=== PATIENT | female | born 1940 | race Caucasian/White ===

== ENCOUNTER 2023-08-30 06:53 | Inpatient (IN) ==
[2023-08-30 09:33] LABS: INR 1.02 (0.83-1.13)
[2023-08-30 09:47] LABS: Albumin 4.5 g/dL (3.2-5.2); Albumin/Globulin Ratio 1.3 (1-3); C Reactive Protein 5.77 mg/L (<8.01); Calcium 10.1 mg/dL (8.6-10.3); Creatinine, Serum 0.65 mg/dL (0.51-0.95); Globulin 3.5 g/dL (2-4); Potassium 4.1 mmol/L (3.5-5.0); Total Bilirubin 0.4 mg/dL (0.2-1.0); eGFR CKD-EPI 88.4 (>60)
[2023-08-30 09:58] LABS: ABS Lymphocytes 1.1 10^3/uL (1.0-4.8); ABS Monocytes 0.5 10^3/uL (0.0-0.9); ABS Neutrophils 9.2 10^3/uL (1.5-7.6); Eosinophil % 0.2 %; Hematocrit 37.4 % (35-45); Hemoglobin 12.3 g/dL (11.5-14.3); Lymphocyte % 10.2 %; Mean Corpuscular Hemoglobin 26.1 pg (27-33); Mean Platelet Volume 7.9 fL (7.5-11.2); Platelet Count 331 10^3/uL (150-450); Red Blood Count 4.73 10^6/uL (3.63-4.92); Red Cell Distribution Width 19.6 % (12-17); White Blood Count 10.9 10^3/uL (3.8-11.8)
[2023-08-30] MEDS ORDERED: Remdesivir 100 mg Vial 200 MG in NS 0.9% 250 ml 210 ML IV ONE (12:00)
[2023-08-30] MEDS ORDERED: Morphine 2 MG/ML SYRINGE IV PRN (14:40)
[2023-08-30] MEDS: Heparin 5000 UNITS/ML 1 mL VIAL SUBCUT SCH ×2 (17:03→23:25)
[2023-08-31] MEDS ORDERED: Magnesium Hydroxide LIQ 30 ML UDC PO PRN (07:23)
[2023-08-31] MEDS ORDERED: Ondansetron ODT 4 mg TAB 4 MG TAB SL PRN (07:23)
[2023-08-31] MEDS: Remdesivir 100 mg Vial 100 MG in NS 0.9% 250 ml 230 ML IV SCH (08:35)
[2023-08-31 08:37] LABS: Albumin/Globulin Ratio 1.3 (1-3); Calcium 9.3 mg/dL (8.6-10.3); Creatinine, Serum 0.71 mg/dL (0.51-0.95); Globulin 3.2 g/dL (2-4); Potassium 3.7 mmol/L (3.5-5.0); Total Bilirubin 0.6 mg/dL (0.2-1.0); Total Protein 7.2 g/dL (6.4-8.9); eGFR CKD-EPI 85.4 (>60)
[2023-08-31 08:39] LABS: INR 1.11 (0.83-1.13)
[2023-08-31] MEDS ORDERED: Remdesivir 100 mg Vial 100 MG in NS 0.9% 250 ml 230 ML IV SCH (09:00)
[2023-08-31] MEDS ORDERED: Morphine 2 MG/ML SYRINGE ONE (11:30)
[2023-08-31] MEDS: Morphine 2 MG/ML SYRINGE IV PRN ×2 (11:33→16:04)
[2023-08-31] MEDS: Acetaminophen IV 1 GM/100ML 1,000 MG/100 ML BAG IV SCH (18:32)
[2023-08-31] MEDS ORDERED: Enoxaparin 40 MG/0.4 ML SYR SUBCUT ONE (19:38)
[2023-08-31] MEDS: Morphine 2 MG/ML SYRINGE IV SCH ×2 (21:50→23:03)
[2023-08-31] MEDS: Lactated Ringers 1000 ml BAG 1,000 ML IV SCH (21:52)
[2023-08-31] MEDS ORDERED: Lactated Ringers 1000 ml BAG 1,000 ML IV ONE (22:22)
[2023-08-31] MEDS: Senna TAB 8.6 mg TAB PO SCH (23:01)
[2023-09-01] MEDS: Acetaminophen IV 1 GM/100ML 1,000 MG/100 ML BAG IV SCH ×4 (00:10→18:36)
[2023-09-01] MEDS: Morphine 2 MG/ML SYRINGE IV SCH ×4 (03:17→18:09)
[2023-09-01 07:58] LABS: ABS Lymphocytes 0.7 10^3/uL (1.0-4.8); ABS Monocytes 0.5 10^3/uL (0.0-0.9); ABS Neutrophils 6.3 10^3/uL (1.5-7.6); ABS Nucleated RBC 0.01 10^3/ul; Eosinophil % 0.4 %; Hematocrit 34.7 % (35-45); Hemoglobin 11.4 g/dL (11.5-14.3); Lymphocyte % 9.4 %; Mean Corpuscular Hgb Conc 32.7 g/dL (31-36); Mean Corpuscular Volume 79.5 fL (80-97); Mean Platelet Volume 8.1 fL (7.5-11.2); Nucleated Red Blood Cells % 0.1 %/100WBC (0.0-0.8); Platelet Count 244 10^3/uL (150-450); Red Blood Count 4.37 10^6/uL (3.63-4.92); Red Cell Distribution Width 19.8 % (12-17); White Blood Count 7.6 10^3/uL (3.8-11.8)
[2023-09-01 08:13] LABS: Albumin 3.9 g/dL (3.2-5.2); Albumin/Globulin Ratio 1.3 (1-3); Calcium 9.2 mg/dL (8.6-10.3); Creatinine, Serum 0.6 mg/dL (0.51-0.95); Globulin 3.1 g/dL (2-4); Potassium 3.6 mmol/L (3.5-5.0); Total Bilirubin 0.6 mg/dL (0.2-1.0); eGFR CKD-EPI 90.1 (>60)
[2023-09-01 08:19] LABS: INR 1.25 (0.83-1.13)
[2023-09-01] MEDS: Remdesivir 100 mg Vial 100 MG in NS 0.9% 250 ml 230 ML IV SCH (08:35)
[2023-09-01] MEDS: Lactated Ringers 1000 ml BAG 1,000 ML IV SCH ×2 (08:51→19:18)
[2023-09-01] MEDS ORDERED: fentaNYL 100 mcg/2 ml 50 MCG/ML VIAL ONE ×2 (11:10→14:27)
[2023-09-01] MEDS ORDERED: Lidocaine 2% PF 5 ML VIAL ONE (11:10)
[2023-09-01] MEDS ORDERED: Propofol 10 MG/ML 20 ML BTL ONE (11:10)
[2023-09-01] MEDS ORDERED: Rocuronium 50 mg VIAL 10 mg/ml 5 ml VIAL (50 mg) ONE (11:11)
[2023-09-01] MEDS ORDERED: Clindamycin 900 MG/50 **NS BAG 900 MG/50 ML BAG ONE (12:03)
[2023-09-01] MEDS ORDERED: Tranexamic Acid 1 GM/100ML BAG 2,000 MG/200 ML BAG IV ONE (12:05)
[2023-09-01] MEDS ORDERED: Dexamethasone IV 4 MG/ML VIAL 1 ml VIAL ONE ×2 (12:10→14:14)
[2023-09-01] MEDS ORDERED: Lidocaine 1% MPF 5 ML VIAL ONE (12:21)
[2023-09-01] MEDS ORDERED: Ropivacaine 0.2% 2 MG/ML VIAL ONE ×2 (12:21)
[2023-09-01] MEDS ORDERED: ROPIVACAINE 5 MG/ML 30 ML BTL (0.5%) ONE (13:10)
[2023-09-01] MEDS ORDERED: Ondansetron 4 mg VIAL 2 MG/ML 2 ml VIAL ONE (14:14)
[2023-09-01] MEDS: Morphine 2 MG/ML SYRINGE IV PRN (18:34)
[2023-09-01] MEDS: Senna TAB 8.6 mg TAB PO SCH (22:42)
[2023-09-01] MEDS: Clindamycin 600 MG/D5W BAG 600 MG/50 ML BAG IV SCH (22:50)
[2023-09-02] MEDS: Acetaminophen IV 1 GM/100ML 1,000 MG/100 ML BAG IV SCH ×3 (00:57→21:33)
[2023-09-02 04:44] LABS: ABS Lymphocytes 0.5 10^3/uL (1.0-4.8); ABS Monocytes 0.4 10^3/uL (0.0-0.9); ABS Neutrophils 6.1 10^3/uL (1.5-7.6); ABS Nucleated RBC 0.01 10^3/ul; Hematocrit 31.2 % (35-45); Hemoglobin 10.4 g/dL (11.5-14.3); Lymphocyte % 7.4 %; Mean Corpuscular Hemoglobin 26.4 pg (27-33); Mean Corpuscular Hgb Conc 33.4 g/dL (31-36); Mean Corpuscular Volume 79.3 fL (80-97); Mean Platelet Volume 8.2 fL (7.5-11.2); Nucleated Red Blood Cells % 0.1 %/100WBC (0.0-0.8); Platelet Count 239 10^3/uL (150-450); Red Blood Count 3.94 10^6/uL (3.63-4.92); Red Cell Distribution Width 19.4 % (12-17)
[2023-09-02 04:47] LABS: INR 1.4 (0.83-1.13)
[2023-09-02 05:02] LABS: Albumin 3.4 g/dL (3.2-5.2); Albumin/Globulin Ratio 1.3 (1-3); Calcium 8.9 mg/dL (8.6-10.3); Creatinine, Serum 0.54 mg/dL (0.51-0.95); Globulin 2.7 g/dL (2-4); Magnesium 1.8 mg/dL (1.9-2.7); Potassium 3.9 mmol/L (3.5-5.0); Total Bilirubin 0.4 mg/dL (0.2-1.0); Total Protein 6.1 g/dL (6.4-8.9); eGFR CKD-EPI 92.4 (>60)
[2023-09-02] MEDS: Clindamycin 600 MG/D5W BAG 600 MG/50 ML BAG IV SCH ×2 (06:08→16:09)
[2023-09-02] MEDS: Lactated Ringers 1000 ml BAG 1,000 ML IV SCH (06:09)
[2023-09-02] MEDS ORDERED: Magnesium Sulfate 2 gm BAG 2 GM/50 ML BAG IVPB ONE (07:22)
[2023-09-02] MEDS: Remdesivir 100 mg Vial 100 MG in NS 0.9% 250 ml 230 ML IV SCH (10:05)
[2023-09-02] MEDS ORDERED: Lactated Ringers 1000 ml BAG 1,000 ML IV ONE (16:46)
[2023-09-02] MEDS: Morphine 4 MG/ML VIAL (1 ml) IV SCH (21:32)
[2023-09-02] MEDS: Enoxaparin 40 MG/0.4 ML SYR SUBCUT SCH (21:33)
[2023-09-02] MEDS: Senna TAB 8.6 mg TAB PO SCH (22:37)
[2023-09-03] MEDS: Morphine 4 MG/ML VIAL (1 ml) IV SCH ×7 (02:27→23:38)
[2023-09-03] MEDS: Acetaminophen IV 1 GM/100ML 1,000 MG/100 ML BAG IV SCH ×3 (06:20→23:24)
[2023-09-03 07:48] LABS: ABS Basophils 0.1 10^3/uL (0.0-0.1); ABS Eosinophils 0.1 10^3/uL (0.0-0.5); ABS Lymphocytes 1.2 10^3/uL (1.0-4.8); ABS Monocytes 0.5 10^3/uL (0.0-0.9); ABS Neutrophils 5.1 10^3/uL (1.5-7.6); Eosinophil % 0.9 %; Hematocrit 27.2 % (35-45); Lymphocyte % 16.9 %; Mean Corpuscular Hemoglobin 26.2 pg (27-33); Mean Corpuscular Volume 79.3 fL (80-97); Mean Platelet Volume 8.3 fL (7.5-11.2); Nucleated Red Blood Cells % 0.1 %/100WBC (0.0-0.8); Platelet Count 245 10^3/uL (150-450); Red Blood Count 3.43 10^6/uL (3.63-4.92); Red Cell Distribution Width 19.7 % (12-17); White Blood Count 6.9 10^3/uL (3.8-11.8)
[2023-09-03 07:54] LABS: INR 1.28 (0.83-1.13)
[2023-09-03 08:08] LABS: Albumin 3.1 g/dL (3.2-5.2); Albumin/Globulin Ratio 1.3 (1-3); Calcium 8.3 mg/dL (8.6-10.3); Creatinine, Serum 0.57 mg/dL (0.51-0.95); Globulin 2.4 g/dL (2-4); Magnesium 2.1 mg/dL (1.9-2.7); Potassium 3.4 mmol/L (3.5-5.0); Total Bilirubin 0.3 mg/dL (0.2-1.0); Total Protein 5.5 g/dL (6.4-8.9); eGFR CKD-EPI 91.2 (>60)
[2023-09-03] MEDS: Remdesivir 100 mg Vial 100 MG in NS 0.9% 250 ml 230 ML IV SCH (08:47)
[2023-09-03] MEDS: Potassium Chloride IV 40 MEQ in Lactated Ringers 1000 ml BAG 1,000 ML IVPB SCH ×2 (10:19→21:06)
[2023-09-03] MEDS ORDERED: Sodium Phosphate ADULT ENEMA 133 ML BTL PR PRN (17:51)
[2023-09-03] MEDS: Enoxaparin 40 MG/0.4 ML SYR SUBCUT SCH (23:23)
[2023-09-03] MEDS: Senna TAB 8.6 mg TAB PO SCH (23:24)
[2023-09-04] MEDS: Morphine 4 MG/ML VIAL (1 ml) IV SCH ×6 (03:16→23:43)
[2023-09-04] MEDS: Acetaminophen IV 1 GM/100ML 1,000 MG/100 ML BAG IV SCH ×3 (06:02→22:32)
[2023-09-04 07:52] LABS: ABS Eosinophils 0.2 10^3/uL (0.0-0.5); ABS Lymphocytes 1.2 10^3/uL (1.0-4.8); ABS Monocytes 0.4 10^3/uL (0.0-0.9); ABS Neutrophils 4.8 10^3/uL (1.5-7.6); Eosinophil % 2.9 %; Hematocrit 30.6 % (35-45); Mean Corpuscular Hemoglobin 25.9 pg (27-33); Mean Corpuscular Hgb Conc 32.8 g/dL (31-36); Mean Corpuscular Volume 79.1 fL (80-97); Mean Platelet Volume 8.6 fL (7.5-11.2); Platelet Count 283 10^3/uL (150-450); Red Blood Count 3.88 10^6/uL (3.63-4.92); Red Cell Distribution Width 19.8 % (12-17); White Blood Count 6.6 10^3/uL (3.8-11.8)
[2023-09-04 08:11] LABS: Albumin 3.2 g/dL (3.2-5.2); Albumin/Globulin Ratio 1.2 (1-3); Calcium 8.8 mg/dL (8.6-10.3); Creatinine, Serum 0.48 mg/dL (0.51-0.95); Globulin 2.7 g/dL (2-4); Magnesium 1.9 mg/dL (1.9-2.7); Potassium 4.4 mmol/L (3.5-5.0); Total Bilirubin 0.4 mg/dL (0.2-1.0); Total Protein 5.9 g/dL (6.4-8.9); eGFR CKD-EPI 95.1 (>60)
[2023-09-04 08:31] LABS: INR 1.21 (0.83-1.13)
[2023-09-04] MEDS: Lactated Ringers 1000 ml BAG 1,000 ML IV SCH (16:44)
[2023-09-04] MEDS: Enoxaparin 40 MG/0.4 ML SYR SUBCUT SCH (19:54)
[2023-09-04] MEDS: Senna TAB 8.6 mg TAB PO SCH (22:32)
[2023-09-05] MEDS: Morphine 4 MG/ML VIAL (1 ml) IV SCH ×11 (00:17→22:52)
[2023-09-05] MEDS: Lactated Ringers 1000 ml BAG 1,000 ML IV SCH (02:49)
[2023-09-05] MEDS: Acetaminophen IV 1 GM/100ML 1,000 MG/100 ML BAG IV SCH ×3 (05:54→22:55)
[2023-09-05] MEDS: Senna TAB 8.6 mg TAB PO SCH (20:50)
[2023-09-06] MEDS: Morphine 4 MG/ML VIAL (1 ml) IV SCH ×9 (01:18→17:00)
[2023-09-06] MEDS: Acetaminophen IV 1 GM/100ML 1,000 MG/100 ML BAG IV SCH ×3 (06:13→16:01)
[2023-09-06] MEDS ORDERED: Atropine 1% (ORAL/SL) 15 ML BTL SL PRN (16:52)
[2023-09-06] MEDS: Morphine ORAL CONCENTRATE 5 MG/0.25 ML ORAL.SYRIN SL PRN ×3 (18:15→23:36)
[2023-09-06] MEDS: Senna TAB 8.6 mg TAB PO SCH (20:57)
[2023-09-07] MEDS: Acetaminophen IV 1 GM/100ML 1,000 MG/100 ML BAG IV SCH ×4 (00:43→23:49)
[2023-09-07] MEDS: Senna TAB 8.6 mg TAB PO SCH ×2 (21:02→21:11)
[2023-09-08] MEDS: Morphine ORAL CONCENTRATE 5 MG/0.25 ML ORAL.SYRIN SL PRN ×2 (00:52→11:38)
[2023-09-08] MEDS: Acetaminophen IV 1 GM/100ML 1,000 MG/100 ML BAG IV SCH (05:29)
[2023-09-08 08:33] VITALS: BP 132/67
[2023-09-08] MEDS: Senna TAB 8.6 mg TAB PO SCH (21:00)
[2023-09-09] MEDS: Senna TAB 8.6 mg TAB PO SCH (22:06)
[2023-09-09] MEDS: Morphine ORAL CONCENTRATE 5 MG/0.25 ML ORAL.SYRIN SL PRN (22:11)
[2023-09-10] MEDS: Morphine ORAL CONCENTRATE 5 MG/0.25 ML ORAL.SYRIN SL PRN (19:21)
[2023-09-10] MEDS: Senna TAB 8.6 mg TAB PO SCH (19:42)
== END 2023-09-11 11:40 | DRG 521 ==
LOC: ED 06:53 → EDHOLD 06:53 → SUATTDRO 09:21 → SSU 11:41 → SUATTDRO 15:00
PROVIDERS: ADMIT Internal Medicine; ATTEND Hospitalist